=== PATIENT | female | born 1950 | race Caucasian/White ===

== ENCOUNTER → 2019-02-24 07:58 | Outpatient (CLI) | payer MEDICARE, BC ==
[2013-03-23 19:45] VITALS: BMI 25.5
--- NOTE | ~2019-02-24 | EC ---
PATIENT:SATHYA SPENCE DATE OF SERVICE: 02/24/19 SEX: F MEDICAL RECORD: [id number] DATE OF : 46 LOCATION:[facility] AGE OF PATIENT: 68 ADMISSION DATE: 02/24/19 REFERRING PHYSICIAN: INTERPRETING PHYSICIAN: ASHWINI IVAN MD ECHOCARDIOGRAM REPORT ECHO CHARGES 4 ECHO COMPLETE Date: 02/24/19 CLINICAL DIAGNOSIS: BROWN/SOB/ANGINA H/O CAD/HTN ECHOCARDIOGRAPHIC MEASUREMENTS (adult normal given) AC root (d.<3.7cm) 2.7 cm LV Septum d (<1.2 cm> 1.2 cm Valve Excursion 1.5 cm LV Septum (systole) 1.6 cm Left Atria (s.<4.0cm> 3.8 cm LVPW d(<1.2cm) 1.0 cm RV (d.<2.3cm) 1.9 cm LVPW (sytole) 1.8 cm LV diastole(<5.6CM) 4.4 cm MV E-F(>70mm/sec) cm LV systole 2.4 cm LVOT Diameter 1.8 cm MV exc.(>10mm) cm Est.ejection fraction (50-75%) % DOPPLER: LVIT cm/sec A 78.0 cm/sec E 47.0 cm/sec LA cm/sec RVSP 23.3 mmHg LVOT 69.0 cm/sec AOP1/2T m/s Asc. Ao 144 cm/sec RVOT 64.0 cm/sec RA cm/sec PA 96.0 cm/sec AV Gradient Peak 8.3 mmHg AV Mean 4.0 mmHg AV Area 1.3 cm MV Gradient Peak 3.1 mmHg MV Mean 1.0 mmHg MV Area cm COMMENTS: OP - HC [employer] Worker: 1 [employer] Health Insurance Adjuster: 1 Dr. Ivan TAPE# PACS Pericardial Effusion N DATE OF SERVICE: FINDINGS: 1. Left ventricular chamber size is within normal limits. Left ventricular systolic function is normal. Overall ejection fraction estimated at 55%. 2. Left atrium, right atrium, and right ventricular chamber sizes are within normal limits. 3. Valvular structures have normal structure and motion. 4. Doppler interrogation reveals mild aortic insufficiency, mild mitral regurgitation, no other valvular insufficiency or stenosis. Pulmonary systolic ECHOCARDIOGRAM REPORT [id number] SATHYA SPENCE pressure is normal estimated at 23 mmHg. 5. No evidence of pericardial effusion or left ventricular thrombus. TRANSINT:[id number] Voice Confirmation ID: [id number] DOCUMENT ID: [id number] ASHWINI IVAN MD CC: [id number] DICTATION DATE: 03/02/19 1025 PROFESSIONAL DEVELOPMENT DIRECTOR: 03/02/19 1130 DEP CLI 02/24/19 [place] [id number] [place] [id number]
[~2019-02-24 07:58] MED LIST: BAYER CHEWABLE81 MG PO; BUTISOL SODIUM30 MG; COREG 3.1253.125 MG PO; FOSAMAX 70 MG T70 MG PO; ORAPRED ODT10 MG/TAB; PRAVACHOL40 MG PO; PRILOSEC20 MG PO; ZOLOFT50 MG PO
== END | disposition home or self-care (01) ==
LOC: D.HCCARDIO 07:58
PROVIDERS: ATTEND Internal Medicine Cardiovascular Disease
DX: I25.10 Atherosclerotic heart disease of native coronary artery without angina pectoris (principal)